=== PATIENT | female | born 1980 | race Caucasian/White ===

== ENCOUNTER 2020-10-19 10:51 | Emergency (ER) | payer OTHER ==
[~2020-10-19] VITALS: Ht 177.8 cm; Wt 100.0 kg
[2020-10-19 11:09] VITALS: BP 126/87
[2020-10-19] MEDS ORDERED: HYDR-3965 PO (13:29)
[2020-10-19] MEDS ORDERED: HYDROcodone/acetaminophen 10/325mg tab PO ONE (13:30)
== END 2020-10-19 14:44 | disposition home or self-care (01) ==
LOC: ER 10:53
DX: S52.591A Other fractures of lower end of right radius, initial encounter for closed fracture (principal); M25.532 Pain in left wrist; M25.531 Pain in right wrist; Z91.013 Allergy to seafood; Z79.899 Other long term (current) drug therapy; X58.XXXA Exposure to other specified factors, initial encounter; Y93.89 Activity, other specified; Y92.89 Other specified places as the place of occurrence of the external cause; Y99.8 Other external cause status
CPT/HCPCS: 29105; 29125; 73080; 73110; 73200; 99284